=== PATIENT | female | born 1985 | race Caucasian/White ===

== ENCOUNTER 2018-05-29 09:27 | Emergency (ER) | payer MEDICAID, OTHER ==
[2018-05-29] MEDS ORDERED: LORazepam 1 MG TAB PO ONE (09:53)
--- NOTE | 2018-05-29 09:54 | EDPHY ---
H & P Time Seen by Provider: 05/29/18 09:42 HPI/ROS: CHIEF COMPLAINT: Panic attack HISTORY OF PRESENT ILLNESS: 33-year-old female presents to the emergency department by private vehicle with her mother and friend with symptoms of a panic attack. The patient apparently has been under a great deal of stress. She was with her friend driving to work and all the sudden she started breathing rapidly and feeling extremely anxious. She developed paresthesias in her upper and lower extremities. She denies a headache. Denies any reported trauma. Denies dysphagia. Denies chest pain or difficulty breathing. She states that she is becoming more anxious now that she has these paresthesias specially in her upper extremities. She has had symptoms like this in the past. She she admits to using marijuana. No other recreational drugs. No primary care provider. Apparently it is currently on her menstrual cycle and she denies . She has history of previous tubal ligation. REVIEW OF SYSTEMS: Constitutional: No fever, no chills. Eyes: No double or blurry vision. ENT: No sore throat. Respiratory: No cough, no shortness of breath. Cardiac: No chest pain. Gastrointestinal: No abdominal pain, vomiting or diarrhea. Genitourinary: No dysuria. Musculoskeletal: No neck or back pain. Skin: No rashes. Neurological: No headache. Past Medical/Surgical History: Anxiety, tubal ligation Social History: Single Smoking Status: Current every day smoker Physical Exam: General Appearance: Alert, extremely anxious. Tearful. Mother and friend at bedside. Eyes: Pupils equal and round. Extraocular motions are all intact. ENT: Mouth: Mucous membranes moist. Respiratory: No wheezing, rhonchi, or rales, lungs are clear to auscultation. Cardiovascular: Regular rate and rhythm. Gastrointestinal: Abdomen is soft and nontender, no masses, no rebound or guarding, bowel sounds normal. Neurological: Alert and oriented x 3, cranial nerves II through XII grossly intact Skin: Warm and dry, no rashes. Musculoskeletal: Nontender to palpate along the cervical, thoracic or lumbar spine. Neck is supple. Extremities: Full range of motion and no peripheral edema. Psychiatric: Patient is oriented X 3, there is no agitation. Constitutional: Initial Vital Signs Temperature (C) 36.7 C 05/29/18 09:35 Heart Rate 124 H 05/29/18 09:35 Respiratory Rate 40 H 05/29/18 09:35 Blood Pressure 117/75 05/29/18 09:35 O2 Sat (%) 100 05/29/18 09:35 O2 Delivery Mode Room Air Allergies/Adverse Reactions: Penicillins Allergy (Verified 05/29/18 09:29) Home Medications: Medication Instructions Recorded LORazepam [Ativan] 1 mg PO Q6-8PRN PRN #10 tab 05/29/18 Medical Decision Making ED Course/Re-evaluation: Patient was given 1 mg lorazepam p.o.. She was observed and is feeling much better. She is comfortable being discharged home. She is not suicidal homicidal. She was given Ativan prescription in primary care referral. Differential Diagnosis: Including but not limited to anxiety attack, electrolyte abnormality, CVA, anemia, suicidal, depression - Data Points Medications Given: Discontinued Medications Lorazepam (Ativan) 1 mg PO EDNOW ONE Stop: 05/29/18 09:54 Last Admin: 05/29/18 09:56 Dose: 1 mg Departure - Departure Disposition: Home, Routine, Self-Care Clinical Impression: Anxiety Condition: Good Instructions: Lorazepam (By mouth), Anxiety (ED) Additional Instructions: Ativan as needed for symptoms of anxiety. You should have close follow-up with her primary care provider. Return to the emergency department if you developed recurring symptoms of panic not controlled with oral Ativan or if you feel worse in any way. Referrals: Serafin Leroy DO [Doctor of Osteopathy] - 2-3 days without fail (Primary care provider implementation services analyst) Prescriptions: LORazepam [Ativan] 1 mg PO Q6-8PRN PRN #10 tab PRN Reason: P.r.n. Anxiety
[2018-05-29 10:39] VITALS: BP 103/65
== END 2018-05-29 11:02 | disposition home or self-care (01) ==
DX: F41.9 Anxiety disorder, unspecified (principal); F17.200 Nicotine dependence, unspecified, uncomplicated